=== PATIENT | male | born 1985 | race Hispanic/Latino ===

== ENCOUNTER 2020-11-12 21:09 | Emergency (ER) | payer SELFPAY ==
[~2020-11-12] VITALS: Ht 162.6 cm; Wt 83.0 kg
[2020-11-12 21:56] LABS: HEMATOCRIT 40.2 % (39.0-50.0); HEMOGLOBIN 13.7 g/dl (14.0-18.0); IMMATURE GRANULOCYTES 0.6 % (0.0-5.0); MEAN CELL VOLUME 89.9 fL CALC (80.0-100.0); MEAN CORPUSCULAR HGB 30.6 pG CALC (26.0-32.0); MEAN CORPUSCULAR HGB CONC 34.1 g/dL CAL (32.0-36.0); NEUT# 3.88 thou/uL (1.82-7.42); RED BLOOD COUNT 4.47 mill/uL (4.70-6.10); RED CELL DISTRI WIDTH 11.9 % (11.5-15.5)
[2020-11-12 23:00] VITALS: BP 154/92
== END 2020-11-12 23:00 | disposition home or self-care (01) | DRG 179 ==
LOC: ED 21:09
PROVIDERS: Family Medicine
DX: U07.1 COVID-19 (principal)